=== PATIENT | male | born 1985 | race Caucasian/White ===

== ENCOUNTER → 2020-12-02 | Outpatient (CLI) | payer OTHER | LOC: KOH-I 13:40 | DX: M79.672 Pain in left foot (principal); M79.671 Pain in right foot | CPT/HCPCS: 73630 ==

== ENCOUNTER → 2020-12-11 | Outpatient (CLI) | payer OTHER | LOC: EMI 08:02 | DX: M85.672 Other cyst of bone, left ankle and foot (principal); M84.372A Stress fracture, left ankle, initial encounter for fracture; R93.89 Abnormal findings on diagnostic imaging of other specified body structures; M25.472 Effusion, left ankle | CPT/HCPCS: 73721 ==

== ENCOUNTER → 2021-04-10 | Outpatient (CLI) | payer OTHER | LOC: EXRD 15:04 | DX: M79.10 Myalgia, unspecified site (principal) | CPT/HCPCS: 72202 ==